=== PATIENT | female | born 1975 | race Caucasian/White ===

== ENCOUNTER 2017-09-04 13:48 | Emergency (ER) | payer SELFPAY ==
[2017-09-04 14:04] VITALS: RESP 18; TEMP 98.6
--- NOTE | 2017-09-04 14:12 | EDPHY ---
H & P Smoking Status: Never smoked Time Seen by Provider: 09/04/17 13:59 HPI/ROS: CHIEF COMPLAINT: Abdominal pain HISTORY OF PRESENT ILLNESS: 42-year-old female presents with abdominal pain. Onset of upper abdominal pain yesterday, persistent since then. The pain waxes and wanes though is always present. Associated with nausea, no vomiting or diarrhea. Not aggravated by food intake. One-week history of intermittent fever, without other symptoms until the onset of abdominal pain yesterday. Last menstrual period 1 week ago. No prior abdominal surgery and no known gallstones. REVIEW OF SYSTEMS: Constitutional: no chills Eyes: No visual changes ENT: No sore throat Respiratory: No cough, no shortness of breath Cardiac: No chest pain Genitourinary: No hematuria, no dysuria Musculoskeletal: No myalgias Skin: No rash Neurological: No headache, no numbness, no weakness Psychiatric: No depression (Sofiya Barron) Past Medical/Surgical History: Denies (Sofiya Barron) Social History: (Sofiya Barron) Physical Exam: General Appearance: Alert, pleasant, appears uncomfortable Eyes: Pupils equal and round, no conjunctival pallor ENT, Mouth: Mucous membranes moist Neck: Normal inspection Respiratory: Lungs are clear to auscultation Cardiovascular: Regular rate and rhythm Gastrointestinal: Abdomen is soft, epigastric and right upper quadrant tenderness Neurological: A&O, nonfocal, normal gait Skin: Warm and dry Extremities: Normal inspection Psychiatric: Mood and affect normal (Sofiya Barron) Constitutional: Initial Vital Signs Temperature (C) 37 C 09/04/17 13:59 Heart Rate 75 09/04/17 13:59 Respiratory Rate 18 09/04/17 13:59 Blood Pressure 127/95 H 09/04/17 13:59 O2 Sat (%) 97 09/04/17 13:59 O2 Delivery Mode Room Air Allergies/Adverse Reactions: No Known Allergies Allergy (Unverified 03/23/12 14:07) Home Medications: Medication Instructions Recorded Miscellaneous Medical Supply [NO 1 ea MISC AD 03/23/12 HOME MEDS] Albuterol 09/04/17 Hydrocodone/APAP 5/325 [[place] 1 - 2 tab PO Q4 PRN #10 tab 09/04/17 5/325 (RX)] Pantoprazole Sodium [Protonix] 40 mg PO DAILY #20 tablet. 09/04/17 Medical Decision Making - Diagnostics Imaging Results: Imaging Impressions Abdomen Ultrasound 09/04/17 14:08 Impression: No cholelithiasis or biliary ductal dilation. Findings and recommendations discussed with Emergency Department physician, Dr. Zaynab Kimball at 15:03 hour, 09/04/2017. Final report concurs with initial preliminary interpretation. ED Course/Re-evaluation: This patient presents with epigastric and right upper quadrant pain, most concerning for biliary colic versus cholecystitis. Right upper quadrant ultrasound ordered. Morphine and Zofran IV given for pain and nausea control. ( Sofiya Barron) Differential Diagnosis: Differential diagnosis includes though it is not limited to appendicitis, cholecystitis, diverticulitis, pyelonephritis, bowel perforation, small bowel obstruction. (Sofiya Barron) Other Provider: I assumed care of this patient Dr. Barron at 3:00 p.m.. Patient's right upper quadrant ultrasound was reported to me by Dr. Ramos. Call bladder. Normal, without stones, no gallbladder wall thickening, normal common bile duct. I reviewed her laboratory studies. She has a normal white blood cell count. AST is mildly elevated at 67, liver functions are otherwise normal. She is not . UA is normal. This is not UTI or pyelo. Her presentation does not suggest ureterolithiasis. She continues with some mid epigastric pain, improved but not completely relieved with morphine. On exam she has mild midepigastric tenderness without guarding. I suspect gastritis/duodenitis. She is being given a GI cocktail. I reviewed the ultrasound findings with her. She will be discharged with a prescription for Protonix, follow up with her PP , and follow up with Gastroenterology. Danger signs reviewed with her. Patient re-evaluated at 3:45 p.m.. Her pain is resurfacing. She had no relief with the GI cocktail and, in fact, it made her feel somewhat worse. Will try Dilaudid. She is being given Pepcid IV. She was re-examined and continues with midepigastric pain, no guarding. She also has some right upper quadrant tenderness without guarding. 4:15 p.m.: She is feeling markedly better after receiving Pepcid and Dilaudid. She feels that she can return home. 4:45 PM: Still feeling much better. Abdomen is soft and nontender. No nausea. She is discharged home with prescriptions for Zofran and Protonix. She is given referrals to GI. She has a primary care physician but cannot remember the name. Danger signs were reviewed with her. (Zaynab Kimball) - Data Points Laboratory Results: Laboratory Results 09/04/17 14:08 09/04/17 14:08 09/04/17 09/04/17 09/04/17 14:10 14:08 14:08 WBC RBC Hgb Hct MCV MCH MCHC RDW Plt Count MPV Neut % (Auto) Lymph % (Auto) [place] % (Auto) Eos % (Auto) Baso % (Auto) Nucleat RBC Rel Count Absolute Neuts (auto) Absolute Lymphs (auto) Absolute Monos (auto) Absolute Eos (auto) Absolute Basos (auto) Absolute Nucleated RBC Immature Gran % Seg Neutrophils % Band Neutrophils % Lymphocytes % Monocytes % Immature Gran # Absolute Seg Neuts Absolute Band Neuts Absolute Lymphocytes Absolute Monocytes Atypical Lymphocytes Platelet Estimate Sodium 141 mEq/L mEq/L (135-145) Potassium 3.9 mEq/L mEq/L (3.5-5.2) Chloride 103 mEq/L mEq/L (97-110) Carbon Dioxide 24 mEq/l mEq/l (22-31) Anion Gap 14 mEq/L mEq/L (8-16) BUN 5 mg/dL L mg/dL (7-23) Creatinine 0.9 mg/dL mg/dL (0.6-1.0) Estimated GFR > 60 Glucose 106 mg/dL H mg/dL (70-100) Calcium 9.0 mg/dL mg/dL (8.5-10.4) Total Bilirubin 0.6 mg/dL mg/dL (0.1-1.4) Conjugated Bilirubin 0.2 mg/dL mg/dL (0.0-0.5) Unconjugated Bilirubin 0.4 mg/dL mg/dL (0.0-1.1) AST 41 IU/L IU/L (14-46) ALT 67 IU/L H IU/L (9-52) Alkaline Phosphatase 73 IU/L IU/L (38-126) Total Protein 7.0 g/dL g/dL (6.3-8.2) Albumin 3.7 g/dL g/dL (3.5-5.0) Lipase 31 IU/L IU/L (23-300) Beta HCG, Qual NEGATIVE Urine Color YELLOW Urine Appearance CLEAR Urine pH 5.5 (5.0-7.5) Ur Specific [place] 1.015 (1.002-1.030) Urine Protein NEGATIVE (NEGATIVE) Urine Ketones NEGATIVE (NEGATIVE) Urine Blood NEGATIVE (NEGATIVE) Urine Nitrate NEGATIVE (NEGATIVE) Urine Bilirubin NEGATIVE (NEGATIVE) Urine Urobilinogen 0.2 EU EU (0.2-1.0) Ur Leukocyte Esterase NEGATIVE (NEGATIVE) Urine Glucose NEGATIVE (NEGATIVE) 09/04/17 14:08 WBC 7.05 10^3/uL 10^3/uL (3.80-9.50) RBC 4.80 10^6/uL 10^6/uL (4.18-5.33) Hgb 14.6 g/dL g/dL (12.6-16.3) Hct 42.4 % % (38.0-47.0) MCV 88.3 fL fL (81.5-99.8) MCH 30.4 pg pg (27.9-34.1) MCHC 34.4 g/dL g/dL (32.4-36.7) RDW 11.9 % % (11.5-15.2) Plt Count 221 10^3/uL 10^3/uL (150-400) MPV 9.9 fL fL (8.7-11.7) Neut % (Auto) 51.1 % % (39.3-74.2) Lymph % (Auto) 42.4 % % (15.0-45.0) [place] % (Auto) 4.8 % % (4.5-13.0) Eos % (Auto) 0.4 % L % (0.6-7.6) Baso % (Auto) 1.0 % % (0.3-1.7) Nucleat RBC Rel Count 0.0 % % (0.0-0.2) Absolute Neuts (auto) 3.60 10^3/uL 10^3/uL (1.70-6.50) Absolute Lymphs (auto) 2.99 10^3/uL 10^3/uL (1.00-3.00) Absolute Monos (auto) 0.34 10^3/uL 10^3/uL (0.30-0.80) Absolute Eos (auto) 0.03 10^3/uL 10^3/uL (0.03-0.40) Absolute Basos (auto) 0.07 10^3/uL 10^3/uL (0.02-0.10) Absolute Nucleated RBC 0.00 10^3/uL 10^3/uL (0-0.01) Immature Gran % 0.3 % % (0.0-1.1) Seg Neutrophils % 48 % % Band Neutrophils % 10 % % Lymphocytes % 35 % % Monocytes % 7 % % Immature Gran # 0.02 10^3/uL 10^3/uL (0.00-0.10) Absolute Seg Neuts 3.4 K/MM3 K/MM3 (1.8-7) Absolute Band Neuts 0.7 K/MM3 K/MM3 (0-0.7) Absolute Lymphocytes 2.5 K/mm3 K/mm3 (1.0-4.8) Absolute Monocytes 0.5 K/mm3 K/mm3 (0-0.8) Atypical Lymphocytes 1+ H Platelet Estimate ADEQUATE (ADEQ) Sodium Potassium Chloride Carbon Dioxide Anion Gap BUN Creatinine Estimated GFR Glucose Calcium Total Bilirubin Conjugated Bilirubin Unconjugated Bilirubin AST ALT Alkaline Phosphatase Total Protein Albumin Lipase Beta HCG, Qual Urine Color Urine Appearance Urine pH Ur Specific [place] Urine Protein Urine Ketones Urine Blood Urine Nitrate Urine Bilirubin Urine Urobilinogen Ur Leukocyte Esterase Urine Glucose Medications Given: Discontinued Medications Al Hydroxide/Mg Hydroxide (Maalox Susp) 30 ml PO ONCE ONE Stop: 09/04/17 15:07 Last Admin: 09/04/17 15:11 Dose: 30 ml Hydromorphone HCl (Dilaudid) 0.5 mg IVP EDNOW ONE Stop: 09/04/17 15:35 Last Admin: 09/04/17 15:47 Dose: 0.5 mg Hyoscyamine Sulfate (Levsin, Hyomax-Sl) 0.25 mg PO ONCE ONE Stop: 09/04/17 15:07 Last Admin: 09/04/17 15:11 Dose: 0.25 mg Famotidine 20 mg/ Sodium (Chloride) 102 mls @ 408 mls/hr IV EDNOW ONE Stop: 09/04/17 15:48 Last Admin: 09/04/17 15:47 Dose: 102 mls Lidocaine (Lidocaine 2% Viscous) 15 ml PO ONCE ONE Stop: 09/04/17 15:07 Last Admin: 09/04/17 15:11 Dose: 15 ml Morphine Sulfate (Morphine) 6 mg IVP EDNOW ONE Stop: 09/04/17 14:14 Last Admin: 09/04/17 14:44 Dose: 6 mg Ondansetron HCl (Zofran) 4 mg IVP EDNOW ONE Stop: 09/04/17 14:14 Last Admin: 09/04/17 14:44 Dose: 4 mg Departure - Departure Disposition: Home, Routine, Self-Care Clinical Impression: Abdominal pain Qualifiers: Abdominal location: epigastric Qualified Code(s): R10.13 - Epigastric pain Condition: Good Instructions: Gastritis (ED), Acute Abdominal Pain (ED) Additional Instructions: Take the Protonix as prescribed. I recommend that you follow up with your primary care physician and/or Gastroenterology. I am providing you with a referral to a government service executive. It is fine if you see any physician in the practice. If you are worse in any way--fever, severe persistent pain, new or concerning symptoms--please return for another evaluation. Referrals: Stanislaw Bundy MD, FACG [Medical Doctor] - As per Instructions Prescriptions: Hydrocodone/APAP 5/325 [[place] 5/325 (RX)] 1 - 2 tab PO Q4 PRN #10 tab PRN Reason: pain Pantoprazole Sodium [Protonix] 40 mg PO DAILY #20 tablet.
[2017-09-04] MEDS ORDERED: ONDANSETRON 4 MG/2 ML VIAL IVP ONE (14:13)
[2017-09-04 14:30] LABS: PLATELET COUNT 221 10^3/uL (150-400)
[2017-09-04] MEDS ORDERED: HYOSCYAMINE SULFATE 0.125 MG TAB PO ONE (15:06)
[2017-09-04] MEDS ORDERED: LIDOCAINE 2% VISCOUS 15 ML UDCUP PO ONE (15:06)
[2017-09-04] MEDS ORDERED: MAG HYDROX/AL HYDROX/SIMETH 30 ML UDCUP PO ONE (15:06)
[2017-09-04] MEDS ORDERED: FAMOTIDINE 20 MG in NS 100 ML IV ONE (15:34)
[2017-09-04] MEDS ORDERED: HYDROmorphONE/DILAUDID 1 MG/ML INJ IVP ONE (15:34)
[2017-09-04] MEDS ORDERED: FAMOTIDINE 20 MG/2 ML SDV ONE (15:43)
[2017-09-04 16:40] VITALS: BP 123/62; PULSE 74; O2SAT 94
== END 2017-09-04 16:46 | disposition home or self-care (01) ==
LOC: CED 13:48
DX: R10.13 Epigastric pain (principal)
CPT/HCPCS: 76705-PO; 80048-PO; 80076-PO; 81003-PO; 83690-PO; 84703-PO; 85025-PO; 96365; J1170; J2405